=== PATIENT | female | born 1950 | race Caucasian/White ===

== ENCOUNTER 2017-07-09 11:42 | Outpatient (CLI) | payer OTHER ==
--- NOTE | 2017-07-10 08:37 | MAMMO ---
EXAM: Bilateral digital screening mammogram (2-D and 3-D) Comparison: Bilateral mammogram 07/12/2016 Findings: MLO and CC views of bilateral breasts demonstrate heterogeneously dense breast parenchyma which can obscure small lesions. CAD was reviewed by the radiologist. Tomosynthesis was performed. Stable benign bilateral vascular calcifications. There are no dominant masses, no suspicious microc alcifications and no architectural distortions Impression: Benign stable mammogram. Recommend followup routine screening mammography in 1 year. BIRADS 2
== END 2017-07-09 11:43 | disposition home or self-care (01) ==
LOC: RAD 11:42
PROVIDERS: ATTEND Internal Medicine
DX: Z12.31 Encounter for screening mammogram for malignant neoplasm of breast (principal)
CPT/HCPCS: 77067